=== PATIENT | female | born 1975 | race African-American/Black ===

== ENCOUNTER 2025-03-18 21:59 | Inpatient (IN) | payer MEDICAID, OTHER ==
[~2025-03-18] VITALS: Ht 152.4 cm; Wt 226.1 kg
[2025-03-18 22:40] VITALS: PULSE 87; RESP 18; O2SAT 100
[2025-03-18] MEDS: SODIUM CHLORIDE 0.9% 1,000 ML IV ONE (22:52)
[2025-03-18 23:03] LABS: Hematocrit 29.7 % (36.0-46.0); Hemoglobin 9.5 g/dL (12.2-16.2); Mean Corpuscular Hemoglobin 27.2 pg (28.0-32.0); Mean Corpuscular Volume 85.4 fL (80.0-100.0); Nucleated Red Blood Cells % 0.1 %
--- NOTE | 2025-03-18 23:07 | ED.PDOC ---
HPI Comments HPI: Poor Historian. 49-year-old female brought in by ambulance for generalized weakness and dizziness. She was found with systolic blood pressure in the 80s. She was given 500 cc of normal saline in route. On arrival her blood pressure is systolic in the 70s but she is able to mentate well. Patient states she has been taking bunch of muscle relaxant medications. She has been feeling weak and tired like that for two weeks but got worse today. Denies any other acute symptoms. Past Medical History: Hypertension, hyperlipidemia, morbid obesity, Past Surgical History: Tonsillectomy, , bilateral tubal ligation REVIEW OF SYSTEMS: CONSTITUTIONAL: Denies acute: fever, diaphoresis, chills, HEAD: Denies acute: headache, photophobia Eyes: Denies acute: Double vision, vision loss, eye pain, eye discharge. EARS: Denies acute: tinnitus, hearing loss, ear discharge, ear pain, THROAT: Denies acute: sore throat, swelling, difficulty swallowing , pain with sw allowing, change in voice. NECK: Denies acute: neck pain, neck swelling, stiff neck. HEART: Denies acute : chest pain, palpitations, LUNGS: Denies acute: SOB, wheezing, cough, hemoptysis ABDOMEN: Denies acute: abdominal pain, Nausea, Vomiting, diarrhea, melena , hematemesis, hematochezia SKIN: Denies acute: rash, redness, lesions, itchiness. EXTREMITIES: Denies acute: calf pain, numbness, tingling, weakness, denies pain in extremity. Denies acute: Low back pain. Neuro: Denies acute: focal neurological deficit, motor or sensory focal neurological deficit, tremors, seizure like activity, confusion, change in mental status, loss of bowel or bladder function, cauda equina like symptoms. : Denies acute: dysuria, hematuria, flank pain, increase in urinary frequency. PSYCH: Denies acute: hallucination, suicidal ideation, homicidal ideation. FEMALE: Denies acute: abnormal vaginal bleeding, foul odor, unusual discharge. PHYSICAL EXAM: General: -----mild---acute distress, awake and alert. Head: normocephalic, atraumatic. No raccoon's eyes, no alicia sign. Neck: supple, trachea is midline, no swelling. Throat: Normal phonation. Dry oral mucosa Eyes:, no erythema, no purulent discharge, no proptosis, no icterus. Heart: regular rate, regular rhythm, no significant murmur appreciated. Lungs: no apparent respiratory distress, Able to speak in full sentences. No wheezing, no rhonchi, no crackles. No stridors Clear to auscultation bilaterally. Abdomen: non tender to palpation, non distended, soft, no guarding, no rebound, + bowel sounds. Morbidly obese Neuro: Awake, Alert, oriented to name, self, situation, follows commands GCS=15. Speech is normal. Skin: no petechia, no purpura, no cyanosis, slightly-pale, not jaundice. Lower extremities: --no - Pitting edema no deformity, no focal swelling, no calf TTP. Makes eye contact. moves all four extremities. Face: no apparent facial droop. ED COURSE: DISCLAIMER: This medical document was created using an electronic medical record system with voice recognition software and computerized dictation system. Although this document has been carefully reviewed, there might still be some phonetic and typographical errors. Occasional wrong-word or "sound-alike" substitutions may have occurred due to the inherent limitations of voice recognition software. Th nghia areas are purely typographical due to imperfections of the software programs and do not reflect any compromise in the patient's medical care. Please read the chart carefully and recognize, using context, where these substitutions have occurred. Chief Complaint: Low Blood Pressure Time Seen by MD: 22:44 Reviewed Notes: Allergies Allergies: Coded Allergies: NO KNOWN ALLERGIES (Unverified , 03/18/25) Information Source: Patient Mode of Arrival: EMS Was a procedure done? Was a procedure done?: No CP Differential Dx Differential Diagnosis: Other (Includes but not limited to thyroid disease, encephalopathy, electrolyte abnormality, sepsis, infection, intracranial pathology, drug adverse effects, arrhythmia, kidney insufficiency, ACS, CVA, malignancy, anemia) X-Ray, Labs, Meds, VS Vital Signs Date Time Temp Pulse Resp B/P (MAP) Pulse Ox O2 Delivery O2 Flow Rate FiO2 03/19/25 03:00 100 18 111/42 (65) 100 03/19/25 02:43 92/48 03/19/25 02:00 95 16 80/26 (44) 100 03/19/25 01:00 94 16 103/40 (61) 100 03/19/25 00:30 97.5 92 15 93/51 (65) 100 97.5 03/18/25 22:40 87 18 100 Nasal Cannula* 2 28 03/18/25 22:40 97.7 92 15 72/39 (50) 96 97.7 03/18/25 22:09 98.4 92 16 93/44 96 98.4 Lab Test 03/19/25 02:25 03/18/25 23:46 03/18/25 22:43 Range/Units Urine Color Light-yellow Yellow Urine Clarity Clear Clear Urine pH 5.0 5.0-9.0 Urine Specific [place] 1.010 1.001-1.035 Urine Protein Negative Negative Urine Ketones Negative Negative Urine Blood 1+ H Negative /uL Urine Nitrite Negative Negative Urine Bilirubin Negative Negative Urine Urobilinogen Normal Negative mg/dL Urine Leukocyte Esterase Negative Negative /uL Urine RBC <1 0 - 4 /hpf Urine Microscopic WBC 1 0-5 /HPF Urine Squamous Epithelial Cells Few <5 /hpf Urine Bacteria None seen None Seen /hpf Urine Hyaline Casts Few 0 - 2 /lpf Urine Mucus Few None Seen Urine Glucose 2+ H Normal mg/dL Troponin I High Sensitivity < 3 L < 3 L </=34 ng/L White Blood Count 11.0 H 4.4-10.8 10^3/uL Red Blood Count 3.48 L 4.0-5.20 10^6/uL Hemoglobin 9.5 L 12.2-16.2 g/dL Hematocrit 29.7 L 36.0-46.0 % Mean Corpuscular Volume 85.4 80.0-100.0 fL Mean Corpuscular Hemoglobin 27.2 L 28.0-32.0 pg Mean Corpuscular Hemoglobin Concent 31.9 L 32.0-36.0 g/dL Red Cell Distribution Width 13.0 11.8-14.3 % Platelet Count 203 140-450 10^3/uL Mean Platelet Volume 8.7 6.9-10.8 fL Neutrophils (%) (Auto) 71.9 37.0-80.0 % Lymphocytes (%) (Auto) 14.7 10.0-50.0 % Monocytes (%) (Auto) 10.0 0.0-12.0 % Eosinophils (%) (Auto) 3.0 0.0-7.0 % Basophils (%) (Auto) 0.4 0.0-2.0 % Neutrophils # (Auto) 7.9 1.6-8.6 10 ^3/uL Lymphocytes # (Auto) 1.6 0.4-5.4 10 ^3/uL Monocytes # (Auto) 1.1 0-1.3 10 ^3/uL Eosinophils # (Auto) 0.3 0-0.8 10 ^3/uL Basophils # (Auto) 0 0-0.2 10 ^3/uL Nucleated Red Blood Cells 0.1 % Sodium Level 129 L 136-145 mmol/L Potassium Level 4.9 3.5-5.1 mmol/L Chloride Level 98 98-107 mmol/L Carbon Dioxide Level 22 20-31 mmol/L Anion Gap 9 5-15 Blood Urea Nitrogen 29 H 9-23 mg/dL Creatinine 3.03 H 0.550-1.02 mg/dL Glomerular Filtration Rate Calc 18 >90 mL/min BUN/Creatinine Ratio 9.6 L 10.0-20.0 Serum Glucose 410 *H 74-106 mg/dL Lactic Acid Level 2.0 0.4-2.0 mmol/L Calcium Level 7.1 L 8.7-10.4 mg/dL Total Bilirubin 0.2 0.2-1.0 mg/dL Aspartate Amino Transferase (AST) 42 H 13-40 U/L Alanine Aminotransferase (ALT) 19 7-40 U/L Alkaline Phosphatase 113 46-116 U/L B-Type Natriuretic Peptide 21.32 0-100 pg/mL Total Protein 5.7 5.7-8.2 g/dL Albumin 3.3 3.2-4.8 g/dL Current Medications Medications (Trade) Dose Ordered Sig/Arlette Route Start Time Stop Time Status Last Admin Sodium Chloride 1,000 ml @ 1,000 mls/hr Q1H ONCE IV 03/18/25 22:45 03/18/25 23:44 DC 03/18/25 22:52 Furosemide (Lasix Injection) 40 mg ONCE ONCE IV 03/19/25 01:45 03/19/25 01:46 DC 03/19/25 02:43 Time of 1ST Reevaluation: 05:30 Reevaluation 1ST: Improved Patient Education/Counseling: Diagnosis, Treatment Family Education/Counseling: Other Comments MDM: patient presented with the above HPI.--hypotension----workup was initiated. patient was found with the above mentioned diagnosis. the following medications were ordered: please refer to order lists of meds and tests obtained by myself Dr. Pepper. Patient ED course and VS have been stabilized. Patient has been reassessed in the ED and remained in a stable condition. Pertinent incidental findings were discussed with the patient and/or family. Patient/family voices understanding and is agreeable with plan. Patient has been observed in the ED adequate length of time to insure improv ement/stability. Escalation of care considered: Consideration of escalation to observation or admission Patient was given a total of 2 L normal saline bolus which improved his blood pressure. Chest x-ray findings suggest possible pulmonary vascular congestion and cardiomegaly, Lasix was ordered. Patient was ADMITTED to the medicine team for further evaluation and treatment of their presentation. Medicine team started the patient on antibiotics given the patient's elevated lactic acid and hypotension Bilateral lower extremity ultrasound results are still pending. All the reports of any imaging studies that were ordered by myself were reviewed by myself. SEPSIS Sepsis Screen Date sepsis recognized/suspect: Mar 18, 2025 Time Sepsis recognized/suspect: 2212 Recent Procedure: No On Antibiotic Therapy: No Respiratory Rate >20: No Heart Rate >90: Yes Temp<36 C (96.8 F) or >38.3 C: No SBP <90 or MAP <65 mmHG: Yes New Acute Mental Status Change: No Is the patient on CPAP, BIPAP,: No Physician Orders Chest Portable (03/18/25 22:25) Electrocardigram (03/18/25 22:25) Blood Culture (03/18/25 22:25) Insert/Manage Urinary Catheter QSHIFT (03/19/25 01:40) Bilat Lower Dvt (03/19/25 02:30) Vital Signs Date Time Temp Pulse Resp B/P (MAP) Pulse Ox O2 Delivery O2 Flow Rate FiO2 03/19/25 03:00 100 18 111/42 (65) 100 03/19/25 02:43 92/48 03/19/25 02:00 95 16 80/26 (44) 100 03/19/25 01:00 94 16 103/40 (61) 100 03/19/25 00:30 97.5 92 15 93/51 (65) 100 97.5 03/18/25 22:40 87 18 100 Nasal Cannula* 2 28 03/18/25 22:40 97.7 92 15 72/39 (50) 96 97.7 03/18/25 22:09 98.4 92 16 93/44 96 98.4 Laboratory Tests Test 03/18/25 22:43 Lactic Acid Level 2.0 mmol/L (0.4-2.0) White Blood Count 11.0 10^3/uL (4.4-10.8) H Medications Medications Dose Ordered Sig/Arlette Route Start Time Stop Time Status Last Admin Dose Admin Furosemide 40 mg ONCE ONCE IV 03/19/25 01:45 03/19/25 01:46 DC 03/19/25 02:43 Sodium Chloride 1,000 ml @ 1,000 mls/hr Q1H ONCE IV 03/18/25 22:45 03/18/25 23:44 DC 03/18/25 22:52 Departure 1 Departure Time of Disposition: 23:07 Impression: Primary Impression: Hypotension Additional Impressions: Anemia Pulmonary vascular congestion Acute renal insufficiency Hyponatremia Disposition: 09 ADMITTED INPATIENT Admit to: Tele Condition: Guarded Discharged With: Self Critical Care Note Critical Care Time?: Yes (45 min-critical care time only) Heart Score Heart Score: Heart Score Response (Comments) Value History Slightly Suspicious 0 EKG Normal 0 Age 45-64 1 Risk Factors >3 or Hx ASHD 2 Troponin Normal limit 0 Total 3 JASPER PEPPER DO Mar 18, 2025 23:07
--- NOTE | 2025-03-18 23:11 | DVH ---
CHEST RADIOGRAPH Indication: HYPOTENSION Technique: Single frontal view of the chest was obtained COMPARISON: None FINDINGS: Cardiac silhouette is enlarged. Diffuse prominence of the pulmonary vasculature. No focal airspace d isease. No large pleural effusions. Bones and soft tissues demonstrate no significant abnormality. IMPRESSION: Cardiomegaly with pulmonary venous congestion.
[2025-03-18 23:17] LABS: Alanine Aminotransferase 19 U/L (7-40); Albumin 3.3 g/dL (3.2-4.8); Alkaline Phosphatase 113 U/L (46-116); Anion Gap 9 (5-15); BUN/Creatinine Ratio 9.6 (10.0-20.0); Carbon Dioxide 22 mmol/L (20-31); Chloride 98 mmol/L (98-107); Potassium 4.9 mmol/L (3.5-5.1)
[2025-03-18 23:27] LABS: Bilirubin, Total 0.2 mg/dL (0.2-1.0); Blood Urea Nitrogen 29 mg/dL (9-23); Calcium 7.1 mg/dL (8.7-10.4); Sodium 129 mmol/L (136-145); Total Protein 5.7 g/dL (5.7-8.2)
[2025-03-18 23:30] LABS: Glucose 410 mg/dL (74-106)
[2025-03-19] VITALS (9 sets, daily range): BP systolic 100–129; BP diastolic 58–73; PULSE 91–104; RESP 16–20; TEMP 97.6–98.6; O2SAT 98–100
[2025-03-19] MEDS: FUROSEMIDE 40 MG/4 ML VIAL IV ONE (02:43)
[2025-03-19 03:24] LABS: Urine Protein, UAD Negative (Negative)
--- NOTE | 2025-03-19 03:58 | DVHHP2 ---
History of Present Illness Reason for Visit: Hypotension History of Present Illness The patient is a 49-year-old female morbidly obese with past medical history of diabetes mellitus, hypertension, and hyperlipidemia who presented to [facility] ED with complaint of generalized weakness, shortness of breaths, and dizziness. Patient was found with systolic blood pressure in the 80s and was given 500 cc of normal saline EN route to our facility ED. Patient was seen and evaluated in the ED with systolic pressure in nature in the 70s, heart rate 96, temperature 97.6 F, O2 saturation 98% on oxygen. Laboratory data shows WBC 11.0, hemoglobin 9.5, hematocrit 29.7, platelets 203, sodium 129, potassium 4.9, BUN 29, creatinine 3.03, glucose 410, calcium 7.1, lactic acid 2.0, AST 42, ALT 19, troponin < 3, BNP 21.32. Extremity venous studies showed no right femoropopliteal venous thrombosis, no venous thrombus within the visualized left lower extremity veins. Chest x-ray revealing cardiomegaly with pulmonary vascular congestion. Patient was started on IV antibiotic regimen Rocephin, please see medication orders section in the computer. On my assessment, patient denied chest pain, no headache, dizziness, diaphoresis, currently on oxygen, no abdominal pain, diarrhea, nausea, vomiting, no fever, chills. Patient was admitted for further evaluation and medical management. Past Medical History Diabetes mellitus, Hypertension, Hyperlipidemia, Morbid obesity, Past Surgical History Tonsillectomy, , Bilateral tubal ligation Family History Reviewed, noncontributory to the management of this case. Past Social History The patient lives at home, denies smoking, alcohol or illicit drugs abuse. Review of Systems Constitutional: Yes: Weakness, Other (Morbid obesity); No: Fever, Chills, Sweats, Malaise Eyes: No: Pain, Vision change, Conjunctivae inflammation, Eyelid inflammation, Other, Redness ENT: No: Ear pain, Ear discharge, Nose pain, Nose discharge, Nose congestion, Mouth pain, Mouth swelling, Throat pain, Throat swelling, Other Respiratory: Shortness of breath, Other (SOB at rest); No: Cough, Dry, SOB with excertion, Wheezing, Hemoptysis, Pleuritic Pain, Sputum, Wheezing Cardiovascular: No: Chest Pain, Palpitations, Orthopnea, Paroxysmal Noc. Dyspnea, Edema, Lt Headedness, Other Gastrointestinal: No: Nausea, Vomiting, Abdominal Pain, Diarrhea, Constipation, Melena, Hematochezia, Other Genitourinary: No Dysuria, No Frequency, No Incontinence, No Hematuria, No Retention, No Other Musculoskeletal: No: other, neck pain, shoulder pain, arm pain, back pain, hand pain, leg pain, foot pain Skin: Other (Bilateral toes wound infection); No: Rash, Lesions, Jaundice, Bruising Neurological: Other (Dizziness); No: Weakness, Numbness, Incoordination, Change in speech, Confusion, Seizures Allergies: Coded Allergies: NO KNOWN ALLERGIES (Unverified , 03/18/25) Exam Vital Signs Vital Signs Date Time Temp Pulse Resp B/P (MAP) Pulse Ox O2 Delivery O2 Flow Rate FiO2 03/19/25 02:43 92/48 03/19/25 02:00 95 16 100 03/19/25 00:30 97.5 97.5 03/18/25 22:40 Nasal Cannula* 2 28 General Appearance: Alert, Oriented X3, Cooperative, No acute distress HEENT: Atraumatic, PERRLA, EOMI, Mucous membr. moist/pink Respiratory: Normal air movement, Other (Shortness of breaths) Cardiovascular: Regular rate, Normal S1, Normal S2, No murmurs Abdominal: Normal bowel sounds, Soft, No tenderness, No hepatospenomegaly, No masses Extremities: No clubbing, No cyanosis, No edema, Normal pulses, No tenderness/swelling Skin: No rashes Neuro: Normal speech, Normal tone, Sensation intact, Cranial nerves 3-12 NL, Reflexes 2+, Other (Generalized weakness) Psych/Mental Status: Mental status NL, Mood NL Labs/Xrays Labs Test 03/19/25 02:25 03/18/25 23:46 03/18/25 22:43 Range/Units Urine Color Light-yellow Yellow Urine Clarity Clear Clear Urine pH 5.0 5.0-9.0 Urine Specific Tamms 1.010 1.001-1.035 Urine Protein Negative Negative Urine Ketones Negative Negative Urine Blood 1+ H Negative /uL Urine Nitrite Negative Negative Urine Bilirubin Negative Negative Urine Urobilinogen Normal Negative mg/dL Urine Leukocyte Esterase Negative Negative /uL Urine RBC <1 0 - 4 /hpf Urine Microscopic WBC 1 0-5 /HPF Urine Squamous Epithelial Cells Few <5 /hpf Urine Bacteria None seen None Seen /hpf Urine Hyaline Casts Few 0 - 2 /lpf Urine Mucus Few None Seen Urine Glucose 2+ H Normal mg/dL Troponin I High Sensitivity < 3 L </=34 ng/L White Blood Count 11.0 H 4.4-10.8 10^3/uL Red Blood Count 3.48 L 4.0-5.20 10^6/uL Hemoglobin 9.5 L 12.2-16.2 g/dL Hematocrit 29.7 L 36.0-46.0 % Mean Corpuscular Volume 85.4 80.0-100.0 fL Mean Corpuscular Hemoglobin 27.2 L 28.0-32.0 pg Mean Corpuscular Hemoglobin Concent 31.9 L 32.0-36.0 g/dL Red Cell Distribution Width 13.0 11.8-14.3 % Platelet Count 203 140-450 10^3/uL Mean Platelet Volume 8.7 6.9-10.8 fL Neutrophils (%) (Auto) 71.9 37.0-80.0 % Lymphocytes (%) (Auto) 14.7 10.0-50.0 % Monocytes (%) (Auto) 10.0 0.0-12.0 % Eosinophils (%) (Auto) 3.0 0.0-7.0 % Basophils (%) (Auto) 0.4 0.0-2.0 % Neutrophils # (Auto) 7.9 1.6-8.6 10 ^3/uL Lymphocytes # (Auto) 1.6 0.4-5.4 10 ^3/uL Monocytes # (Auto) 1.1 0-1.3 10 ^3/uL Eosinophils # (Auto) 0.3 0-0.8 10 ^3/uL Basophils # (Auto) 0 0-0.2 10 ^3/uL Nucleated Red Blood Cells 0.1 % Sodium Level 129 L 136-145 mmol/L Potassium Level 4.9 3.5-5.1 mmol/L Chloride Level 98 98-107 mmol/L Carbon Dioxide Level 22 20-31 mmol/L Anion Gap 9 5-15 Blood Urea Nitrogen 29 H 9-23 mg/dL Creatinine 3.03 H 0.550-1.02 mg/dL Glomerular Filtration Rate Calc 18 >90 mL/min BUN/Creatinine Ratio 9.6 L 10.0-20.0 Serum Glucose 410 *H 74-106 mg/dL Lactic Acid Level 2.0 0.4-2.0 mmol/L Calcium Level 7.1 L 8.7-10.4 mg/dL Total Bilirubin 0.2 0.2-1.0 mg/dL Aspartate Amino Transferase (AST) 42 H 13-40 U/L Alanine Aminotransferase (ALT) 19 7-40 U/L Alkaline Phosphatase 113 46-116 U/L B-Type Natriuretic Peptide 21.32 0-100 pg/mL Total Protein 5.7 5.7-8.2 g/dL Albumin 3.3 3.2-4.8 g/dL PATIENT: YASH JOHNSON ACCT: [id number] UNIT: [id number] : 1975 LOC: OVERFLOW ROOM / BED: [address] [place] [address] AGE / SEX: 49 / F ADM STATUS: ADM IN SERVICE 0230 ORDERING PHYSICIAN: JASPER LEE DO PROCEDURE(s): BLDVT - BiLat Lower DVT REASON: swelling ORDER NUMBER(s): [id number], ACCESSION NUMBER(s): [id number] Bilateral lower extremity venous duplex Clinical History: swelling Comparison: None Technique: Duplex Doppler evaluation of the deep venous systems of both lower extremities from the common femoral veins to the popliteal veins including color Doppler and spectral/pulsed waveform analysis was performed. Findings: RIGHT SIDE: The common femoral vein demonstrates appropriate compressibility and waveform variability. There is compressibility/patency of the great saphenous vein at the proximal thigh. The femoral vein demonstrates appropriate compressibility and waveform variability. The deep femoral vein demonstrates appropriate compressibility and waveform variability. The popliteal vein demonstrates appropriate compressibility and waveform variability. There is normal compressibility at the tibioperoneal trunk. LEFT SIDE: The the middle and proximal portions of the common femoral vein demonstrate appropriate compressibility and waveform variability. There is compressibility/patency of the great saphenous vein at the proximal thigh. The femoral vein demonstrates appropriate compressibility and waveform variability. There is normal compressibility at the tibioperoneal trunk. Left deep femoral, distal superficial femoral and popliteal veins not visualized at this time. Impression: 1. No right femoropopliteal venous thrombosis. 2. No venous thrombosis within the visualized left lower extremity veins as above. 3. If clinical concern/symptoms persist or worsen, short-interval follow-up study is suggested. ORDERING PHYSICIAN: JASPER LEE DO PROCEDURE(s): CXRP - CHEST PORTABLE REASON: HYPOTENSION ORDER NUMBER(s): [id number], ACCESSION NUMBER(s): [id number] CHEST RADIOGRAPH Indication: HYPOTENSION Technique: Single frontal view of the chest was obtained COMPARISON: None FINDINGS: Cardiac silhouette is enlarged. Diffuse prominence of the pulmonary vasculature. No focal airspace disease. No large pleural effusions. Bones and soft tissues demonstrate no significant abnormality. IMPRESSION: Cardiomegaly with pulmonary venous congestion. SEPSIS Sepsis Screen Date sepsis recognized/suspect: Mar 18, 2025 Time Sepsis recognized/suspect: 2239 Recent Procedure: No On Antibiotic Therapy: No Respiratory Rate >20: No Heart Rate >90: No Temp<36 C (96.8 F) or >38.3 C: No SBP <90 or MAP <65 mmHG: Yes New Acute Mental Status Change: No Is the patient on CPAP, BIPAP,: No Physician Orders Chest Portable (03/18/25 22:25) Electrocardigram (03/18/25 22:25) Blood Culture (03/18/25 22:25) Insert/Manage Urinary Catheter QSHIFT (03/19/25 01:40) Bilat Lower Dvt (03/19/25 02:30) Complete Blood Count (03/19/25 04:00) Comprehensive Metabolic Panel (03/19/25 04:00) Midodrine Tablet (Proamatine Tablet) (03/19/25 04:00) Midodrine Tablet (Proamatine Tablet) (03/19/25 06:00) Consistent Carb(Ccho)Diabetes (03/19/25 Breakfast) *[facility] (03/19/25 03:50) Ceftriaxone Ivpb Rocephin (03/19/25 09:00) Ceftriaxone Ivpb Rocephin (03/19/25 04:00) * Cardiology Consult (03/19/25 03:50) Glucose Blood (Accu-Chek Comfort Curve T (03/19/25 04:00) Agressive Insulin Ss (03/19/25 04:00) Dextrose 50% Syringe (03/19/25 04:00) Admit (03/19/25 03:50) Allergies (03/19/25 03:50) Code Status (03/19/25 03:50) 0.9% Ns 1000 Ml (03/19/25 04:00) Oxygen Per Hour (03/19/25 03:50) Hydrocodone-Acet 5/325mg Tab ([facility] 32 (03/19/25 04:00) Ondansetron Hcl (Zofran) (03/19/25 04:00) Docusate Sodium Capsule (Colace Capsule) (03/19/25 04:00) Fall Risk Precautions In Place QSHIFT (03/19/25 03:50) Complete Blood Count (03/20/25 04:00) Comprehensive Metabolic Panel (03/20/25 04:00) Condition: Serious (03/19/25 03:50) Acetaminophen Tablet (Tylenol Tablet) (03/19/25 04:00) Maintain Bed Rest (03/19/25 03:50) Sequential Compression Device (03/19/25 ) Nitroglycerin Sublingual (Ntrostat Subli (03/19/25 04:00) Morphine Sulfate Injection (03/19/25 04:00) Stat Ekg For Chest Pain (03/19/25 03:50) Notify Md Of Changes From Base (03/19/25 03:50) [employer] For 24 Hours (03/19/25 03:50) Emergency Dysrhythmia Protocol (03/19/25 03:50) Rhythm Strips Once Every Shift (03/19/25 03:50) Oxygen By Nasal Cannula (03/19/25 03:50) Vital Signs Date Time Temp Pulse Resp B/P (MAP) Pulse Ox O2 Delivery O2 Flow Rate FiO2 03/19/25 02:43 92/48 03/19/25 02:00 95 16 80/26 (44) 100 03/19/25 01:00 94 16 103/40 (61) 100 03/19/25 00:30 97.5 92 15 93/51 (65) 100 97.5 03/18/25 22:40 87 18 100 Nasal Cannula* 2 28 03/18/25 22:40 97.7 92 15 72/39 (50) 96 97.7 03/18/25 22:09 98.4 92 16 93/44 96 98.4 Laboratory Tests Test 03/18/25 22:43 Lactic Acid Level 2.0 mmol/L (0.4-2.0) White Blood Count 11.0 10^3/uL (4.4-10.8) H Medications Medications Dose Ordered Sig/Arlette Route Start Time Stop Time Status Last Admin Dose Admin Furosemide 40 mg ONCE ONCE IV 03/19/25 01:45 03/19/25 01:46 DC 03/19/25 02:43 40 MG Sodium Chloride 1,000 ml @ 1,000 mls/hr Q1H ONCE IV 03/18/25 22:45 03/18/25 23:44 DC 03/18/25 22:52 1,000 MLS/HR Assessment/Plan Assessment/Plan Hypotension Anemia, unspecified Acute renal failure Hyponatremia Acute respiratory distress Leukocytosis, unspecified Acute renal insufficiency Pulmonary vascular congestion Generalized weakness Plan 1. Admit to telemetry unit 2. Breathing treatment 3. Pain control management 4. IV antibiotic management 5. Management of fluids and electrolytes 6. Consultation for Cardiology/wound care/podiatry 7. Diagnostic test extremity venous study 8. DVT prophylaxis-on SCDs 9. Repeat labs CBC, CMP in a.m. 10. Home medication reviewed and reconciled 11. Continue with current medical management 12. Treatment plan discussed with patient and RN. Patient verbalized understanding. Plan discussed with: Patient, Other (RN) My Orders Orders - AMADEO LANG DNP Procedure Category Date Status Time Complete Blood Count LAB 03/19/25 Transmitted 04:00 Comprehensive LAB 03/19/25 Transmitted Metabolic Panel 04:00 Midodrine Tablet PHA 03/19/25 Transmitted (Proamatine Tablet) 04:00 Midodrine Tablet PHA 03/19/25 Transmitted (Proamatine Tablet) 06:00 Consistent DIET 03/19/25 Transmitted Carb(Ccho)Diabetes Breakfast *[facility] CONS 03/19/25 Transmitted -[place] 03:50 Ceftriaxone Ivpb PHA 03/19/25 Transmitted Rocephin 09:00 Ceftriaxone Ivpb PHA 03/19/25 Transmitted Rocephin 04:00 * Cardiology Consult CONS 03/19/25 Transmitted 03:50 Glucose Blood PHA 03/19/25 Transmitted (Accu-Chek Comfort 04:00 Agressive Insulin Ss PHA 03/19/25 Transmitted 04:00 Dextrose 50% Syringe PHA 03/19/25 Transmitted 04:00 Admit ADMIT 03/19/25 Transmitted 03:50 Allergies [facility]CTOR[facility] 11/1/25 Transmitted 03:50 Code Status CODE 03/19/25 Transmitted 03:50 0.9% Ns 1000 Ml [facility] 03/19/25 Transmitted 04:00 Oxygen Per Hour RT 03/19/25 Transmitted 03:50 Hydrocodone-Acet [facility] 03/19/25 Transmitted 5/325mg Tab ([facility] 04:00 Ondansetron Hcl [facility] 03/19/25 Transmitted (Zofran) 04:00 Docusate Sodium [facility] 03/19/25 Transmitted Capsule (Colace 04:00 Fall Risk Precautions [facility] 03/19/[address] 03:50 Complete Blood Count LAB 03/20/25 Verified 04:00 Comprehensive LAB 03/20/25 Verified Metabolic Panel 04:00 Condition: Serious [facility] 03/19/25 Transmitted 03:50 Acetaminophen Tablet [facility] 03/19/25 Transmitted (Tylenol Tablet) 04:00 Maintain Bed Rest [facility] 03/19/25 Transmitted 03:50 Sequential [facility] 03/19/25 Transmitted Compression Device Nitroglycerin [facility] 03/19/25 Transmitted Sublingual (Ntrostat 04:00 Morphine Sulfate [facility] 03/19/25 Transmitted Injection 04:00 Stat Ekg For Chest [facility] 03/19/25 Transmitted Pain 03:50 Notify Md Of Changes [facility] 03/19/25 Transmitted From Base 03:50 [employer] [facility] 03/19/25 Transmitted 24 Hours 03:50 Emergency Dysrhythmia [facility] 03/19/25 Transmitted Protocol 03:50 Rhythm Strips Once [facility] 03/19/25 Transmitted Every Shift 03:50 Oxygen By Nasal RT 03/19/25 Transmitted Cannula 03:50 Problem List: (1) Hypotension (2) Anemia, unspecified (3) Acute renal failure (4) Hyponatremia (5) Acute respiratory distress (6) Leukocytosis, unspecified (7) Acute renal insufficiency (8) Pulmonary vascular congestion (9) Generalized weakness Date of Service: Mar 19, 2025 Billing Provider: AMADEO LANG DNP Common Visit Codes: 97968-[id number] INP/OBS CARE (HIGH) AMADEO LANG DNP Mar 19, 2025 03:58
[2025-03-19] MEDS ORDERED: DEXTROSE (50%) 50ML SYRG IV PRN (04:00)
[2025-03-19] MEDS ORDERED: NITROGLYCERIN 0.4 MG SL TAB SL PRN (04:00)
[2025-03-19] MEDS ORDERED: DOCUSATE SOD 100 MG CAP PO PRN (04:00)
[2025-03-19] MEDS ORDERED: ONDANSETRON HCL 4 MG/2 ML VIAL IV PRN (04:00)
[2025-03-19] MEDS ORDERED: MORPHINE SULFATE INJ 2 MG/ml SYRG IV PRN (04:00)
[2025-03-19] MEDS: SODIUM CHLORIDE 0.9% 1,000 ML IV SCH ×2 (04:25→18:48)
[2025-03-19] MEDS: ACCU-CHEK COMFORT CURVE STRIP VI SCH (04:26)
[2025-03-19] MEDS: InsuLIN REG 1unit/0.01ml Soln (100units/ml) SC SCH (04:36)
[2025-03-19 04:37] LABS: Hematocrit 35.2 % (36.0-46.0); Hemoglobin 11.3 g/dL (12.2-16.2); Mean Corpuscular Hemoglobin 27.6 pg (28.0-32.0); Mean Corpuscular Volume 86.1 fL (80.0-100.0); Nucleated Red Blood Cells % 0.0 %
[2025-03-19] MEDS: MIDODRINE HCL 10 MG TAB PO ONE (04:37)
[2025-03-19] MEDS ORDERED: VANCOMYCIN PER PHARMACY 0 MG IV SCH (04:45)
[2025-03-19 04:53] LABS: Alanine Aminotransferase 25 U/L (7-40); Albumin 3.8 g/dL (3.2-4.8); Anion Gap 12 (5-15); BUN/Creatinine Ratio 16.3 (10.0-20.0); Carbon Dioxide 20 mmol/L (20-31); Chloride 100 mmol/L (98-107); Potassium 4.7 mmol/L (3.5-5.1); Total Protein 6.0 g/dL (5.7-8.2)
[2025-03-19 04:57] LABS: Alkaline Phosphatase 132 U/L (46-116); Bilirubin, Total 0.2 mg/dL (0.2-1.0); Blood Urea Nitrogen 41 mg/dL (9-23); Calcium 7.4 mg/dL (8.7-10.4); Glucose 313 mg/dL (74-106); Lactic Acid w/Reflex 2.4 mmol/L (0.4-2.0); Sodium 132 mmol/L (136-145)
[2025-03-19] MEDS: CALCIUM GLUC 1,000mg/50ml-NS 50 ML IV ONE (05:18)
[2025-03-19] MEDS: VANCOMYCIN 1GM/250ML KIT 250 ML IV ONE (05:18)
--- NOTE | 2025-03-19 05:54 | DVH ---
Bilateral lower extremity venous duplex Clinical History: swelling Comparison: None Technique: Duplex Doppler evaluation of the deep venous systems of both lower extremities from the common femora l veins to the popliteal veins including color Doppler and spectral/pulsed waveform analysis was perf ormed. Findings: RIGHT SIDE: The common femoral vein demonstrates appropriate compressibility and waveform variability. There is compressibility/patency of the great saphenous vein at the proximal thigh. The femoral vein demonstrates appropriate compressibility and waveform variability. The deep femoral vein demonstrates appropriate compressibility and waveform variability. The popliteal vein demonstrates appropriate compressibility and waveform variability. There is normal compressibility at the tibioperoneal trunk. LEFT SIDE: The the middle and proximal portions of the common femoral vein demonstrate appropriate compressibili ty and waveform variability. There is compressibility/patency of the great saphenous vein at the proximal thigh. The femoral vein demonstrates appropriate compressibility and waveform variability. There is normal compressibility at the tibioperoneal trunk. Left deep femoral, distal superficial femoral and popliteal veins not visualized at this time. Impression: 1. No right femoropopliteal venous thrombosis. 2. No venous thrombosis within the visualized left lower extremity veins as above. 3. If clinical concern/symptoms persist or worsen, short-interval follow-up study is suggested.
[2025-03-19] MEDS ORDERED: VANCOMYCIN 1GM/250ML KIT 250 ML IV ONE ×2 (06:30→19:15)
[2025-03-19] MEDS: MIDODRINE HCL 10 MG TAB PO SCH (06:58)
[2025-03-19] MEDS ORDERED: TIZA4CAP14 PO (07:58)
[2025-03-19] MEDS ORDERED: CHOL4POW44 PO (07:59)
[2025-03-19] MEDS ORDERED: DULO1CAP6 PO (07:59)
[2025-03-19] MEDS ORDERED: THIA50TA7 PO (07:59)
[2025-03-19] MEDS ORDERED: FURO20TA4 PO (08:00)
[2025-03-19] MEDS ORDERED: PREG150C63 PO (08:01)
[2025-03-19] MEDS ORDERED: METF-490 PO (08:01)
[2025-03-19] MEDS ORDERED: HYDR100C PO (08:01)
[2025-03-19] MEDS ORDERED: ATOR40TA52 (08:02)
[2025-03-19] MEDS ORDERED: RISP2TAB62 PO (08:02)
[2025-03-19] MEDS ORDERED: PERCOT PO (08:03)
[2025-03-19] MEDS: HYDROcodone-ACET 5/325MG TAB PO PRN (08:28)
--- NOTE | 2025-03-19 14:57 | DVH ---
CLINICAL INDICATION: left shoulder pain TECHNIQUE: XY L SHOULDER 2+ VIEW XRAY Comparison: None FINDINGS/IMPRESSION: : There is no evidence of acute fracture or dislocation. Soft tissues are unremarkable. Severe glenohumeral degenerative joint space narrowing.
--- NOTE | 2025-03-19 17:53 | DVH ---
INDICATION: Acute kidney injury TECHNIQUE: Multiple real-time sonographic images of the kidneys and bladder were obtained. COMPARISON: None FINDINGS: Evaluation is difficult due to patient body habitus. The right kidney measures 11.2 cm in length, which is normal in size. There is normal echogenicity of the right kidney. No hydronephrosis. The left kidney measures 14.4 cm in length, which is normal in size. There is normal echogenicity of the left kidney. No hydronephrosis. There is a tiny anechoic cyst at the interpolar region of the lef t kidney measuring 1.9 cm. The bladder is decompressed about a Scott catheter. Incidental note is made of echogenic liver parenchyma. IMPRESSION: Normal sonographic appearance of the kidneys. No hydronephrosis of either kidney.
[2025-03-19] MEDS: ACETAMINOPHEN 325 MG TAB PO PRN (18:10)
--- NOTE | 2025-03-19 18:30 | DVHINCON2 ---
Date of service: Mar 19, 2025 Referring Physician Hospitalist Reason for Consultation Acute kidney injury History of Present Illness 49-year-old morbidly obese female past medical history of diabetes, chronic elephantiasis, and severe hypertension records requiring high dose of beta- blockers she presents to the hospital after reporting a syncopal episode. She reports 24 hours prior to hospitalization that she was having minimal urinary output was developing lightheadedness and dizziness. At presentation in the ER she is not on a systolic blood pressure less than 80. Nephrology is consulted for evaluation of her kidney function. She reports that more than six months ago she saw a kidney specialist who reported after multiple testing that she had no kidney disease. Her hospital workup thus far has been IV fluid hydration and antibiotics, she is noted to have redness swelling and tenderness to the bilateral in inner aspect of her thighs She currently has a Scott catheter in place, she denies any outpatient history of urinary retention Allergies: Coded Allergies: NO KNOWN ALLERGIES (Unverified , 03/18/25) Home Meds Reported Medications Oxycodone W/ Acetaminophen (Percocet 5/325MG) 1 Tab Tb, 1 TAB PO TID, #90 TAB 03/19/25 Risperidone (Risperidone) 2 Mg Tab, 1 TAB PO BID 03/19/25 Atorvastatin Calcium (ATORVASTATIN CALCIUM) 40 Mg Tab 03/19/25 Pregabalin (Pregabalin) 150 Mg Cap, 1 CAP PO TID 03/19/25 Metformin Hydrochloride (METFORMIN HCL ER) 1,000 Mg Tab, 1 TAB PO BID 03/19/25 Hydroxyzine Pamoate (Hydroxyzine Pamoate) 100 Mg Cap, 1 CAP PO BIDPRN PRN for ANXIETY 03/19/25 Furosemide (Furosemide) 20 Mg Tab, 1-2 TAB PO DAILYPRN PRN for swelling 03/19/25 Cholestyramine Light (Cholestyramine Light) 4 Gm Pow, 2 PKT PO DAILY 03/19/25 Duloxetine HCl (Duloxetine HCl) 60 Mg Cap, 1 CAP PO DAILY 03/19/25 Thiamine Hcl (Vitamin B-1) 50 Mg Tab, 1 TAB PO DAILY 03/19/25 Tizanidine HCl (Tizanidine Hydrochloride) 4 Mg Cap, 1 CAP PO Q8HPRN PRN for MUSCLE SPASM 03/19/25 Current Medications Current Medications Medications (Trade) Dose Ordered Sig/Arlette Route PRN Reason Start Time Stop Time Status Last Admin Midodrine (Proamatine Tablet) 10 mg TID@0600,1200,1800 PO 03/19/25 06:00 03/19/25 18:07 Ceftriaxone Sodium 50 ml @ 100 mls/hr DAILY@09 IV 03/19/25 09:00 UNV Diagnostic Test (Pha) (Accu-Chek Comfort Curve T) 1 strip IQ4HR 03/19/25 04:00 03/19/25 16:23 Insulin Human Regular (InsuLIN R) IQ4HR SC 03/19/25 04:00 03/19/25 16:22 Dextrose 50 ml UD PRN IV Blood Sugar LESS THAN 60 03/19/25 04:00 Sodium Chloride 1,000 ml @ 120 mls/hr Q8H20M IV 03/19/25 04:00 03/19/25 08:28 Acetaminophen/ Hydrocodone Bitart (Wilson 5/325MG Tab) 1 tab Q4HP PRN PO MODERATE PAIN (4-6 PAIN SCALE) 03/19/25 04:00 03/19/25 15:04 Ondansetron HCl (Zofran) 4 mg Q4HP PRN IV NAUSEA / VOMITING 03/19/25 04:00 Docusate Sodium (Colace Capsule) 100 mg BIDPRN PRN PO FOR CONSTIPATION 03/19/25 04:00 Acetaminophen (Tylenol Tablet) 650 mg Q6HP PRN PO PAIN SCALE 1-3 OR TEMP>100.4 03/19/25 04:00 03/19/25 18:10 Nitroglycerin (Ntrostat Sublingual) 0.4 mg Q5MINP PRN SL FOR CHEST PAIN 03/19/25 04:00 Morphine Sulfate 2 mg Q30M PRN IV FOR CHEST PAIN 03/19/25 04:00 Ceftriaxone Sodium 50 ml @ 100 mls/hr DAILY@09 IV 03/20/25 09:00 Vancomycin HCl 0 ml @ 0 mls/hr PER PHARMACY IV 03/19/25 04:45 Hold Family History: Patient reports no known family medical history. Review of Systems In his dizziness and near-syncope H&P Exam Vital Signs/I&O Vital Sign Date Time Temp Pulse Resp B/P (MAP) Pulse Ox O2 Delivery O2 Flow Rate FiO2 03/19/25 17:00 97.6 96 20 108/58 (75) 100 97.6 03/19/25 08:00 Nasal Cannula* 2 28 Intake and Output 03/18/25 03/19/25 19:00 07:00 Intake Total 1050 ml Balance 1050 ml IV Total 1050 ml Physical Exam Morbidly obese white female not in respiratory distress abdomen is soft there is no tenderness no JVD regular rate and rhythm bilateral trace ankle edema, erythema bilateral inner thighs with mild tenderness Scott catheter has clear yellow urine Labs/Diagnostic Data Labs/Diagnostic Data Laboratory Tests Test 03/19/25 16:15 03/19/25 12:00 03/19/25 08:18 03/19/25 06:20 Range/Units POC Glucose 257 H 243 H 309 H 70-106 mg/dl Lactic Acid Level 1.5 0.4-2.0 mmol/L Test 03/19/25 04:20 03/19/25 04:15 03/19/25 02:25 03/18/25 23:46 Range/Units White Blood Count 12.0 H 4.4-10.8 10^3/uL Red Blood Count 4.09 4.0-5.20 10^6/uL Hemoglobin 11.3 #L 12.2-16.2 g/dL Hematocrit 35.2 #L 36.0-46.0 % Mean Corpuscular Volume 86.1 80.0-100.0 fL Mean Corpuscular Hemoglobin 27.6 L 28.0-32.0 pg Mean Corpuscular Hemoglobin Concent 32.1 32.0-36.0 g/dL Red Cell Distribution Width 13.2 11.8-14.3 % Platelet Count 213 140-450 10^3/uL Mean Platelet Volume 8.6 6.9-10.8 fL Neutrophils (%) (Auto) 74.8 37.0-80.0 % Lymphocytes (%) (Auto) 10.8 10.0-50.0 % Monocytes (%) (Auto) 10.9 0.0-12.0 % Eosinophils (%) (Auto) 2.8 0.0-7.0 % Basophils (%) (Auto) 0.7 0.0-2.0 % Neutrophils # (Auto) 9.0 H 1.6-8.6 10 ^3/uL Lymphocytes # (Auto) 1.3 0.4-5.4 10 ^3/uL Monocytes # (Auto) 1.3 0-1.3 10 ^3/uL Eosinophils # (Auto) 0.3 0-0.8 10 ^3/uL Basophils # (Auto) 0.1 0-0.2 10 ^3/uL Nucleated Red Blood Cells 0.0 % Sodium Level 132 L 136-145 mmol/L Potassium Level 4.7 3.5-5.1 mmol/L Chloride Level 100 98-107 mmol/L Carbon Dioxide Level 20 20-31 mmol/L Anion Gap 12 5-15 Blood Urea Nitrogen 41 #H 9-23 mg/dL Creatinine 2.51 H 0.550-1.02 mg/dL Glomerular Filtration Rate Calc 23 >90 mL/min BUN/Creatinine Ratio 16.3 10.0-20.0 Serum Glucose 313 H 74-106 mg/dL Lactic Acid Level 2.4 *H 0.4-2.0 mmol/L Calcium Level 7.4 L 8.7-10.4 mg/dL Total Bilirubin 0.2 0.2-1.0 mg/dL Aspartate Amino Transferase (AST) 49 H 13-40 U/L Alanine Aminotransferase (ALT) 25 7-40 U/L Alkaline Phosphatase 132 H 46-116 U/L Total Protein 6.0 5.7-8.2 g/dL Albumin 3.8 3.2-4.8 g/dL POC Glucose 318 H 70-106 mg/dl Urine Color Light-yellow Yellow Urine Clarity Clear Clear Urine pH 5.0 5.0-9.0 Urine Specific [place] 1.010 1.001-1.035 Urine Protein Negative Negative Urine Ketones Negative Negative Urine Blood 1+ H Negative /uL Urine Nitrite Negative Negative Urine Bilirubin Negative Negative Urine Urobilinogen Normal Negative mg/dL Urine Leukocyte Esterase Negative Negative /uL Urine RBC <1 0 - 4 /hpf Urine Microscopic WBC 1 0-5 /HPF Urine Squamous Epithelial Cells Few <5 /hpf Urine Bacteria None seen None Seen /hpf Urine Hyaline Casts Few 0 - 2 /lpf Urine Mucus Few None Seen Urine Glucose 2+ H Normal mg/dL Troponin I High Sensitivity < 3 L </=34 ng/L Test 03/18/25 22:43 Range/Units White Blood Count 11.0 H 4.4-10.8 10^3/uL Red Blood Count 3.48 L 4.0-5.20 10^6/uL Hemoglobin 9.5 L 12.2-16.2 g/dL Hematocrit 29.7 L 36.0-46.0 % Mean Corpuscular Volume 85.4 80.0-100.0 fL Mean Corpuscular Hemoglobin 27.2 L 28.0-32.0 pg Mean Corpuscular Hemoglobin Concent 31.9 L 32.0-36.0 g/dL Red Cell Distribution Width 13.0 11.8-14.3 % Platelet Count 203 140-450 10^3/uL Mean Platelet Volume 8.7 6.9-10.8 fL Neutrophils (%) (Auto) 71.9 37.0-80.0 % Lymphocytes (%) (Auto) 14.7 10.0-50.0 % Monocytes (%) (Auto) 10.0 0.0-12.0 % Eosinophils (%) (Auto) 3.0 0.0-7.0 % Basophils (%) (Auto) 0.4 0.0-2.0 % Neutrophils # (Auto) 7.9 1.6-8.6 10 ^3/uL Lymphocytes # (Auto) 1.6 0.4-5.4 10 ^3/uL Monocytes # (Auto) 1.1 0-1.3 10 ^3/uL Eosinophils # (Auto) 0.3 0-0.8 10 ^3/uL Basophils # (Auto) 0 0-0.2 10 ^3/uL Nucleated Red Blood Cells 0.1 % Sodium Level 129 L 136-145 mmol/L Potassium Level 4.9 3.5-5.1 mmol/L Chloride Level 98 98-107 mmol/L Carbon Dioxide Level 22 20-31 mmol/L Anion Gap 9 5-15 Blood Urea Nitrogen 29 H 9-23 mg/dL Creatinine 3.03 H 0.550-1.02 mg/dL Glomerular Filtration Rate Calc 18 >90 mL/min BUN/Creatinine Ratio 9.6 L 10.0-20.0 Serum Glucose 410 *H 74-106 mg/dL Lactic Acid Level 2.0 0.4-2.0 mmol/L Calcium Level 7.1 L 8.7-10.4 mg/dL Total Bilirubin 0.2 0.2-1.0 mg/dL Aspartate Amino Transferase (AST) 42 H 13-40 U/L Alanine Aminotransferase (ALT) 19 7-40 U/L Alkaline Phosphatase 113 46-116 U/L Troponin I High Sensitivity < 3 L </=34 ng/L B-Type Natriuretic Peptide 21.32 0-100 pg/mL Total Protein 5.7 5.7-8.2 g/dL Albumin 3.3 3.2-4.8 g/dL Assessment Acute kidney injury suspect hemodynamically mediated in the setting of hypotension and near syncopal episode Agree with IV fluid hydration and hold blood pressure medications at this time Baseline renal function is unknown, we will acquire collateral information to diagnosed patient with CKD Ultrasound of the kidney did not show any abnormal findings Sepsis suspect soft tissue infection in the setting of cellulitis IV antibiotics recommend dose dependent medications and titrate according to GFR History of hypertension currently hypotensive hold blood pressure medications History of diabetes on metformin hold metformin at this time and use insulin as per hospital protocol Reports history of chronic lower extremity swelling but no history of congestive heart failure recommend obtain echocardiogram Obtain urine protein creatinine ratio Nephrotic syndrome is unlikely No indication for dialysis at this time we will continue to monitor and follow with medical therapy Daily assessment labs urinary output monitoring and Scott catheter Rest of care as per primary medical team Plan discussed with: Patient ANGELA GRIFFIN MD Mar 19, 2025 18:30
[2025-03-19] MEDS: MELATONIN 5 MG TAB PO ONE (22:22)
[2025-03-20 01:00] VITALS: BP 127/65; PULSE 103; RESP 17; TEMP 97.5; O2SAT 100
[2025-03-20 05:00] VITALS: BP 113/79; PULSE 130; RESP 15; TEMP 98.7; O2SAT 95
[2025-03-20 07:35] LABS: Hematocrit 31.5 % (36.0-46.0); Hemoglobin 10.3 g/dL (12.2-16.2); Mean Corpuscular Hemoglobin 27.4 pg (28.0-32.0); Mean Corpuscular Volume 83.5 fL (80.0-100.0); Nucleated Red Blood Cells % 0.0 %
[2025-03-20 07:57] LABS: Alanine Aminotransferase 24 U/L (7-40); Albumin 3.8 g/dL (3.2-4.8); Anion Gap 11 (5-15); BUN/Creatinine Ratio 11.4 (10.0-20.0); Bilirubin, Total 0.5 mg/dL (0.2-1.0); Blood Urea Nitrogen 19 mg/dL (9-23); Carbon Dioxide 24 mmol/L (20-31); Chloride 105 mmol/L (98-107); Potassium 4.6 mmol/L (3.5-5.1); Sodium 140 mmol/L (136-145); Total Protein 6.4 g/dL (5.7-8.2)
[2025-03-20 08:00] VITALS: PULSE 120
[2025-03-20 08:01] LABS: Alkaline Phosphatase 141 U/L (46-116); Calcium 8.4 mg/dL (8.7-10.4); Glucose 198 mg/dL (74-106)
[2025-03-20 09:00] VITALS: BP 161/60; PULSE 121; RESP 18; TEMP 97.1; O2SAT 99
--- NOTE | 2025-03-20 09:33 | DVHPN2 ---
Progress Note Date Seen: Mar 20, 2025 Medical Necessity Reason Pt with a Central, PICC or Fol: Yes The following are medically ne: Scott Catheter Subjective Patient reports: Feels better Objective vital signs Vital Sign Date Time Temp Pulse Resp B/P (MAP) Pulse Ox O2 Delivery O2 Flow Rate FiO2 03/20/25 08:00 Room Air* 0 21 03/20/25 05:00 98.7 130 15 113/79 (90) 95 98.7 Total Intake and Output 03/19/25 03/19/25 03/20/25 15:00 23:00 07:00 Intake Total 1920 ml 450 ml Output Total 1250 ml 3500 ml Balance 670 ml -3050 ml medications Current Medications Medications Dose Ordered Sig/Arlette Route Start Time Stop Time Status Last Admin Dose Admin Midodrine 10 mg TID@0600,1200,1800 PO 03/19/25 06:00 03/20/25 06:38 10 MG Ceftriaxone Sodium 50 ml @ 100 mls/hr DAILY@09 IV 03/19/25 09:00 UNV Diagnostic Test (Pha) 1 strip IQ4HR 03/19/25 04:00 03/20/25 07:57 1 STRIP Insulin Human Regular IQ4HR SC 03/19/25 04:00 03/20/25 07:57 8 UNITS Dextrose 50 ml UD PRN IV 03/19/25 04:00 Acetaminophen/ Hydrocodone Bitart 1 tab Q4HP PRN PO 03/19/25 04:00 03/20/25 05:10 1 TAB Ondansetron HCl 4 mg Q4HP PRN IV 03/19/25 04:00 Docusate Sodium 100 mg BIDPRN PRN PO 03/19/25 04:00 Acetaminophen 650 mg Q6HP PRN PO 03/19/25 04:00 03/19/25 18:10 650 MG Nitroglycerin 0.4 mg Q5MINP PRN SL 03/19/25 04:00 Morphine Sulfate 2 mg Q30M PRN IV 03/19/25 04:00 Ceftriaxone Sodium 50 ml @ 100 mls/hr DAILY@09 IV 03/20/25 09:00 03/20/25 07:57 100 MLS/HR Vancomycin HCl 0 ml @ 0 mls/hr PER PHARMACY IV 03/19/25 04:45 Sodium Chloride 1,000 ml @ 100 mls/hr Q10H IV 03/19/25 18:30 03/20/25 04:30 100 MLS/HR Examination: GENERAL:Abnormal, CVS:Normal, SKIN:Abnormal laboratory and microbiology Laboratory Tests 03/20/25 05:48 Test 03/20/25 05:48 Range/Units Serum Glucose 198 H 74-106 mg/dL Microbiology Date/Time Source Procedure Growth Status 03/18/25 22:25 Blood Blood Culture - Preliminary NO GROWTH AFTER 24 HOURS OF INCUBATION. Resulted Problem List/Assessment/Plan Problem List/Assessment/Plan Acute kidney injury suspect hemodynamically mediated in the setting of hypotension and near syncopal episode Agree with IV fluid hydration and hold blood pressure medications at this time renal function is improving significantly TOV prior to DC Baseline renal function is unknown, we will acquire collateral information to diagnosed patient with CKD Ultrasound of the kidney did not show any abnormal findings obtain urine protein cr ratio Sepsis suspect soft tissue infection in the setting of cellulitis IV antibiotics recommend dose dependent medications and titrate according to GFR History of hypertension currently hypotensive hold blood pressure medications History of diabetes on metformin hold metformin at this time and use insulin as per hospital protocol Reports history of chronic lower extremity swelling but no history of congestive heart failure recommend obtain echocardiogram can DC IVF this afternoon, MARIANNA recovering, will sign off and obtain renal clinic f/u at dc TOV Rest of care as per primary medical team Plan discussed with: Patient My Orders My Orders Orders - ANGELA GRIFFIN MD Procedure Category Date Status Time Kidney US 03/19/25 Resulted 17:14 Sodium Chloride 0.9% PHA 03/19/25 In Process 18:30 Urine LAB 03/19/25 Logged Protein/Creatinine 18:23 ANGELA GRIFFIN MD Mar 20, 2025 09:32
[2025-03-20] MEDS: VANCOMYCIN 1.5GM/250ML 250 ML IV ONE (10:29)
[2025-03-20] MEDS ORDERED: BACDST PO (10:44)
[2025-03-20 11:09] LABS: Protein, Urine 64.9 mg/dL (1-14)
[2025-03-20 12:16] VITALS: BP 138/88; PULSE 126; O2SAT 95
== END 2025-03-20 12:50 | disposition home or self-care (01) | DRG 720 ==
LOC: ER 21:59 → EDBD 21:59 → OVERFLOW 03-19 03:50 → TELE-WESTW 03-19 06:40
PROVIDERS: ADMIT Nurse Practitioner Family; ATTEND Nurse Practitioner Family
DX: A41.9 Sepsis, unspecified organism (principal); N17.0 Acute kidney failure with tubular necrosis; E87.20 Acidosis, unspecified; E87.1 Hypo-osmolality and hyponatremia; D64.9 Anemia, unspecified; E11.22 Type 2 diabetes mellitus with diabetic chronic kidney disease; L03.032 Cellulitis of left toe; L03.031 Cellulitis of right toe; N18.9 Chronic kidney disease, unspecified; I12.9 Hypertensive chronic kidney disease with stage 1 through stage 4 chronic kidney disease, or unspecified chronic kidney disease; E78.5 Hyperlipidemia, unspecified; Z98.51 Tubal ligation status
CPT/HCPCS: 36415; 71045; 73030; 76775; 80053; 80202; 81001; 82570; 82962; 83036; 83605; 83880; 84156; 84484; 85025; 85652; 86850; 86900; 86901; 87040; 93970; 96365; 96375; 99291; G0378; J1815